=== PATIENT | male | born 1995 | race Caucasian/White ===

== ENCOUNTER 2016-11-05 16:10 | Emergency (ER) | payer OTHER ==
[2016-11-05 16:28] VITALS: BP 150/86
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
[2016-11-05] MEDS ORDERED: Bacitracin Oint 1 GM U/D Packet TOP ONE (17:43)
== END 2016-11-05 18:01 | disposition home or self-care (01) ==
LOC: JP.ED 16:10
DX: T22.211A Burn of second degree of right forearm, initial encounter (principal); T22.212A Burn of second degree of left forearm, initial encounter; T20.20XA Burn of second degree of head, face, and neck, unspecified site, initial encounter
CPT/HCPCS: 99283